=== PATIENT | male | born 1975 | race Caucasian/White ===

== ENCOUNTER 2017-01-03 12:16 | Emergency (ER) | payer BC, OTHER ==
[~2017-01-03] VITALS: Ht 165.1 cm; Wt 82.3 kg
[~2017-01-03 12:16] MED LIST: ARTISOL OPR; ASPI81TA28 PO; CHOL100010 PO; CYAN10005 PO; LPT/20 PO; OMEP20CA9 PO
[2017-01-03 12:27] VITALS: Ht 165.1 cm; Wt 82.3 kg
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
[2017-01-03] MEDS ORDERED: ACETAMINOPHEN 500 MG TAB PO STA (17:11)
[2017-01-03 19:17] VITALS: BP 132/85; PULSE 80; TEMP 36.9; O2SAT 98
== END 2017-01-03 19:00 | disposition short-term general hospital (02) ==
LOC: EDBD 12:16 → C.EDC 12:17
DX: S02.32XA Fracture of orbital floor, left side, initial encounter for closed fracture (principal); S02.82XA Fracture of other specified skull and facial bones, left side, initial encounter for closed fracture; S02.40DA Maxillary fracture, left side, initial encounter for closed fracture; S02.40FA Zygomatic fracture, left side, initial encounter for closed fracture; K21.9 Gastro-esophageal reflux disease without esophagitis; E78.5 Hyperlipidemia, unspecified; Z79.82 Long term (current) use of aspirin; Z79.899 Other long term (current) drug therapy; F17.200 Nicotine dependence, unspecified, uncomplicated; Z82.49 Family history of ischemic heart disease and other diseases of the circulatory system; Z83.3 Family history of diabetes mellitus; V20.4XXA Motorcycle driver injured in collision with pedestrian or animal in traffic accident, initial encounter